=== PATIENT | male | born 1970 | race African-American/Black ===

== ENCOUNTER → 2018-09-14 | Outpatient (CLI) | payer OTHER | LOC: LABWHC1 13:08 | PROVIDERS: ATTEND Orthopaedic Surgery Sports Medicine | DX: M25.511 Pain in right shoulder (principal); F17.200 Nicotine dependence, unspecified, uncomplicated; M75.101 Unspecified rotator cuff tear or rupture of right shoulder, not specified as traumatic | CPT/HCPCS: 36415; 93005 ==

== ENCOUNTER 2018-09-22 10:48 | Day surgery (SDC) | payer OTHER ==
[~2018-09-22 10:48] MED LIST: ACETAMINOPHEN TAB 500 MG TAB PO ONE; ONDANSETRON 4 MG/2 ML VIAL IVP ONE; Pre Op ABX Message 1 EACH MISC MISCELLANE ONE; TRANEXAMIC ACID 1,000 MG in SODIUM CHLORIDE 0.9% 50 ML IVPB ONE
[2018-09-22 11:17] VITALS: RESP 16
[2018-09-22] MEDS ORDERED: LACTATED RINGERS 1,000 ML IV ONE (11:32)
[2018-09-22] MEDS ORDERED: MIDAZOLAM 2 MG/2 ML VIAL IV ONE (12:01)
[2018-09-22] MEDS ORDERED: fentaNYL (PF) 50 MCG/ML 2 ML AMP IV ONE (12:01)
[2018-09-22] MEDS ORDERED: ceFAZolin IN SWFI 2 GM/20 ML SYRINGE IVP ONE (12:17)
[2018-09-22] MEDS ORDERED: SUCCINYLCHOLINE CHLORIDE 100 MG/5 ML SYR IV ONE (12:48)
[2018-09-22] MEDS ORDERED: ROPIVACAINE 5 MG/ML 30 ML VIAL ONE (12:48)
[2018-09-22] MEDS ORDERED: LIDOCAINE 1% INJ 10MG/ML (20 ML MDV) ONE (12:48)
[2018-09-22] MEDS ORDERED: fentaNYL (PF) 50 MCG/ML 2 ML AMP ONE (12:48)
[2018-09-22] MEDS ORDERED: PROPOFOL 10 MG/ML 20 ML VIAL IV ONE (12:48)
--- NOTE | 2018-09-22 12:52 | P.ONQ ---
Anesthesiology Proc Note - PNB - Peripheral Nerve Block Performed Right Interscalene Single Time Out Performed: Yes (1200) Procedure Start Time: 12:00 Procedure Stop Time: 12:10 Indication: Acute Post-Operative Pain, Dx/Pain Location (Right Shoulder Pain), Requested by physician Sedation Type: Sedate with meaningful contact maintained Preparation: Sterile Prep Position: Supine Catheter: None Needle Types: On-Q Needle Size: 50mm (2") Needle Gauge: 21 Technique: Ultrasound Injectate: Other (see comment) (20ml 0.375% Ropivacaine) Blood Aspirated: No Pain Paresthesia on Injection Noted: No Resistance on Injection: Normal Events: Uneventful and Well Tolerated
[2018-09-22] MEDS ORDERED: BUPIVACAIN-EPI 0.5%-1:200,000 30 ML VIAL SQ ONE (13:34)
[2018-09-22 14:13] VITALS: TEMP 96.9
[2018-09-22 15:25] VITALS: BP 153/90; PULSE 55
--- NOTE | 2018-09-22 19:58 | OP ---
OPERATIVE REPORT DATE OF PROCEDURE: 09/22/2018 SURGEON: Abelardo Tony MD. [employer] BUSINESS ANALYST: Govind SMITH. PREOPERATIVE DIAGNOSES: 1. Right shoulder full-thickness rotator cuff tear. 2. Right shoulder superior labral tear. 3. Right shoulder bicipital tenosynovitis. POSTOPERATIVE DIAGNOSES: 1. Right shoulder full-thickness tear of the supraspinatus, 1 x 1 cm tear. 2. Right shoulder type 2 superior labral tear. 3. Right shoulder high-grade partial tearing of the intra-articular portion of the long head of the biceps tendon. 4. Right shoulder type 2 anterolateral acromial spur. PROCEDURES PERFORMED: 1. Right shoulder arthroscopic rotator cuff repair, 1 x 1 cm tear of the supraspinatus. 2. Right shoulder arthroscopic acromioplasty. 3. Right shoulder arthroscopic biceps tenotomy. 4. Right shoulder arthroscopic anterior, superior and posterior labral debridement. ANESTHESIA: General endotracheal. ESTIMATED BLOOD LOSS: Minimal. TOURNIQUET: None. DRAINS: None. COMPLICATIONS: None apparent. DISPOSITION: Post-Anesthesia Care Unit. INDICATIONS: Examination under anesthesia of the right shoulder: Elevation 160 degrees, external rotation to the side is to 50 degrees, external rotation at 90 degrees abduction was at 90 degrees, internal rotation at 90 degrees adduction was to 80 degrees. Sulcus less than 1 cm, anterior translation glenoid face, posterior translation glenoid face. Arthroscopic findings, right shoulder: 1. Superior labrum type 2 superior labral tear, tearing of both anterior and posterior to the biceps anchor. The biceps anchor was not intact. There was also fairly high-grade partial tearing of the intra-articular portion of the long head of the biceps tendon. 2. Anteroinferior labrum normal glenoid labral attachment. 3. Tearing of the posterior labrum from the 10 o'clock position up to the 12 o'clock position on the glenoid face. 4. Humeral head cartilage was normal. 5. Rotator cuff full-thickness tear of the anterior supraspinatus measuring 1 x 1 cm tear with minimal retraction. 6. Glenoid face cartilage was normal. 7. Subacromial space significant fraying of the undersurface of the coracoacromial ligament with a type 2 anterolateral acromial spur. INDICATIONS: Bobo is a very pleasant 47-year-old male with right shoulder pain. He sustained an injury several months ago. He has noted weakness as well as significant pain in the shoulder. He has been through a fairly significant course of nonoperative treatment up to this point. Physical examination and MRI revealed tearing of the supraspinatus as well as suggestion of superior labral tearing. At this point he feels that he has failed nonoperative treatment and would like to proceed with operative intervention. A long discussion was held with the patient regarding his treatment options. The risks of the procedure were all discussed with him in detail. These risks include but are not limited to risk of infection, nerve damage, bleeding, pain, and a small risk of deep vein thrombosis which could lead to fatal pulmonary embolism. Further risks include lack of healing of the rotator cuff and the possibility for a biceps contour change with a biceps tenotomy. The patient understands the operation as well as the fact that there is no guarantee of improvement of his symptoms. Appropriate informed consent was obtained. DESCRIPTION OF THE PROCEDURE: The patient was identified in the preoperative holding area. Surgical site was marked by both the patient and myself. He was given 2 grams of Ancef IV for prophylactic purposes. He was then transported to the operative suite. He was placed supine on the operating room table. The patient was then intubated endotracheally and received general anesthesia throughout the operative procedure. Examination under anesthesia was then performed with the findings noted above. The patient was then placed into the beach chair position and well padded in preparation for surgery. Great care was taken to ensure that his cervical spine was in neutral alignment, well padded and maintained that way throughout the operative procedure. Great care was also taken to ensure that his legs were appropriately padded as well. The patient's right upper extremity was then prepped and draped in the usual sterile fashion. Standard surgical pause was then undertaken to ensure that appropriate preoperative antibiotics had been given and that we were operating on the correct site. All staff in the room were in agreement and we proceeded. The acromion as well as the AC joint and coracoid were marked with a surgical pen. The skin of the anticipated portal sites were also marked with a surgical pen. The skin of the anticipated portal sites were then injected with 0.25% Marcaine with epinephrine. I then proceeded to make the posterior portal. A 30-degree arthroscope was introduced in the glenohumeral joint through this portal. The arthroscopic pump pressure was set at 40 mmHg and maintained at that level throughout the entire case. Next, utilizing an 18-gauge spinal needle to topically localize the placement, the anterosuperior portal was made. This was made just underneath the biceps tendon high in the rotator interval. A small .75 mm cannula was then placed and the outflow was then done through this cannula. A diagnostic arthroscopy of the shoulder was then performed. The findings are noted above. Great care was taken to probe the superior labral complex as well as the biceps anchor. The biceps anchor was not firmly attached. He had significant tearing of the superior labrum. This extended both anterior and posterior to the biceps anchor. The intra- articular portion of long head of the biceps tendon did have fairly high-grade partial tearing as well. At this point I proceeded with the biceps tenotomy. The biceps was tenotomized near its attachment onto the supraglenoid tubercle. This was done utilizing the ArthroCare wand. I then proceeded to debride the torn loose tissue of the superior labrum. This was debrided anteriorly, superiorly and posteriorly back to stable tissue. I then inspected the rotator cuff from intra-articular. He did have a full-thickness tear of the anterior supraspinatus. The tear was debrided very gently from intra- articular utilizing a synovial shaver. At this point time no further work was deemed necessary from intra-articular. The arthroscope was removed from the glenohumeral joint, and utilizing the same posterior skin incision, it was placed in the subacromial space. Next, utilizing the 18-gauge spinal needle to topically localize the placement, a lateral portal was made under direct visualization. Subacromial bursectomy was then performed utilizing the synovial shaver as well as the ArthroCare wand. There was significant fraying of the undersurface of the coracoacromial ligament. This was then taken down utilizing the ArthroCare wand. This exposed an underlying type 2 anterolateral acromial spur. I then proceeded with an acromioplasty. Utilizing the synovial shaver in a donald-type fashion, the acromioplasty was completed. When the acromioplasty was completed, the arthroscope was placed into the lateral portal and the shaver placed posteriorly to ensure that it was adequate and coplanar with the posterior aspect of the acromion. I then proceeded to repair the rotator cuff tear, a full-thickness tear of the supraspinatus. This measured approximately 1 x 1 cm. The footprint of the greater tuberosity was then debrided of all devitalized tissue utilizing the synovial shaver as well as the ArthroCare wand. I then performed a light decortication of the greater tuberosity utilizing the synovial shaver in a donadl-type fashion. This provided a nice bleeding surface with the repair. I then placed small microfracture holes along the articular margin to again enhance the healing of the repair. I then utilized the PodPoster suture-passer to place an Arthrex fiber tape suture in an inverted horizontal mattress fashion. The suture was then shuttled out through the anterolateral portal. I then proceeded with placement of the anchor. The awl was placed in the most anterolateral aspect of the footprint. This was just posterior to the bicipital groove. The sutures were shuttled through the anchor and the anchor was then placed after tensioning the sutures appropriately. The anchor had excellent purchase in bone. The anchor used was an Arthrex 4.75 mm Bio-SwiveLock anchor. This brought the rotator cuff tear down very nicely to the most lateral aspect of the footprint. The FiberTape sutures were cut flush with the anchor. The repair was then probed. It was then repaired down very nicely to the most lateral aspect of the footprint. At this point time no further work was deemed necessary. The shoulder was thoroughly irrigated and then drained with an outflow cannula. The arthroscopic equipment was removed from the shoulder. The arthroscopic portals were then closed with 3-0 nylon interrupted suture. Sterile compressive dressing was then applied. The patient's right upper extremity was placed into a standard sling. All sponge and needle counts were deemed correct prior to closure. The patient tolerated the procedure without apparent complication. He was transferred to the recovery room in stable condition. MMODL / IJN: [id number] /
== END 2018-09-22 16:13 | disposition home or self-care (01) ==
LOC: OR 10:48
PROVIDERS: ATTEND Orthopaedic Surgery Sports Medicine
DX: M75.101 Unspecified rotator cuff tear or rupture of right shoulder, not specified as traumatic (principal); S43.431A Superior glenoid labrum lesion of right shoulder, initial encounter; X58.XXXA Exposure to other specified factors, initial encounter; M75.21 Bicipital tendinitis, right shoulder; F17.210 Nicotine dependence, cigarettes, uncomplicated; Z79.1 Long term (current) use of non-steroidal anti-inflammatories (NSAID); Z79.891 Long term (current) use of opiate analgesic
CPT/HCPCS: 64415; 29826; 29827; C1713 ×2; J2250; J2405; J2001; J3010; J2795; J0330; J2704; J0690